=== PATIENT | female | born 1980 | race Caucasian/White ===

== ENCOUNTER → 2019-01-05 09:08 | Outpatient (CLI) | payer OTHER, SELFPAY ==
[2019-01-05 12:19] LABS: Absolute Lymphocyte Count 2.04 X10^3/ul (0.83-4.51); Absolute Neutrophil Count 3.3 X10^3/uL (2.0-7.7); Basophil# 0.05 X10^3/uL; Basophil% 0.8 % (0-1); Eosinophil# 0.44 X10^3/uL; Eosinophils% 6.9 % (0-5); Hematocrit 42.8 % (37-47); Hemoglobin 13.8 g/dl (12.0-15.0); Lymphocyte # 2.04 X10^3/ul (4.0); Mean Corp Hgb Conc 32.2 g/gl (32-36); Mean Corpuscular Hgb 27.5 pg (27.0-32.0); Mean Corpuscular Volume 85.3 fL (81-99); Mean Platelet Vol. 10.4 fl (6.2-12.0); Monocyte# 0.55 X10^3/uL; Monocyte% 8.6 % (0-10); Neutrophil # 3.28 X10^3/uL (2.7-7.7); Neutrophil % 51.5 % (47-70); Platelet Count 288 K/mm3 (150-450); RBC Distribution Width CV 14.3 % (11.6-14.6); RBC Distribution Width SD 44.3 fl (35.1-43.9); Red Blood Count 5.02 M/mm3 (4.2-5.4); White Blood Count 6.4 K/mm3 (4.4-11.0)
[2019-01-05 12:22] LABS: POSITIVE COUNT NO; POSITIVE DIFFERENTIAL NO; POSITIVE MORPHOLOGY NO
[2019-01-05 12:25] LABS: AST(SGOT) 17 U/L (15-37); Alanine Aminotransfer ALT/SGPT 35 U/L (13-56); Albumin, Serum 3.8 g/dL (3.2-5.0); Alkaline Phosphatase 64 U/L (45-117); Anion Gap 8 (5-15); BUN 12 mg/dL (7-18); BUN/Creat Ratio 14.8 RATIO (10-20); Calcium,Total 8.7 mg/dL (8.5-10.1); Chloride 108 mmol/L (98-107); Cholesterol 227 mg/dL (200); Creatinine, Serum 0.81 mg/dL (0.55-1.02); EST Glomerular Filtration Rate 84 mL/min (>60); Est Glom Filt Rate - Afr Amer 101 mL/min (>60); Globulin 3.7 g/dL (2.2-4.2); Glucose 84 mg/dL (74-106); High Density Lipoprotein 43 mg/dL; Potassium 4.1 mmol/L (3.5-5.1); Protein, Total 7.5 g/dL (6.4-8.2); Sodium Level 141 mmol/L (136-145); Triglycerides 166 mg/dL; Very Low Density Lipoprotein 33 mg/dL (5-40)
[2019-01-07 22:36] LABS: Hep B Surface Antibodies Non Reactive (.)
== END ==
PROVIDERS: Family Provider Family Medicine; PCP Family Medicine; Visit Provider Family Medicine
DX: Z20.9 Contact with and (suspected) exposure to unspecified communicable disease (principal); E78.00 Pure hypercholesterolemia, unspecified; Z51.81 Encounter for therapeutic drug level monitoring
CPT/HCPCS: 36415; 80053; 80061; 85025; 86706

== ENCOUNTER 2019-06-21 10:21 | Day surgery (SDC) | payer OTHER, SELFPAY ==
[2019-06-21 09:56] VITALS: BMI 50.4
[2019-06-21 10:46] VITALS: BP 105/57; PULSE 57; RESP 17; TEMP 36.7; O2SAT 98; BMI 50.3
--- NOTE | 2019-06-21 11:20 | PCM.HP.BLA ---
History and Physical Date of Admission: 06/21/19 [facility] [address] [place] [address] OFFICE VISIT Date of Service: 06/21/19 MR#: [id number] Acct: [id number] Name: YANN FONTANA Rep #: [id number] : 1980 Provider: Tamir Granados MD Age/Sex: 39/F Location: [facility] Status: Signed Intake Vital Signs 06/21/19 Height 5 ft 4 in 06/21/19 Weight: 294 lb 06/21/19 Body Mass Index (BMI) 50.4 06/21/19 Blood Pressure 105/69 06/21/19 Blood Pressure Location Rt brachial 06/21/19 Respiratory Rate 18 06/21/19 Pulse Rate 54 L 06/21/19 Pulse Source Monitor 06/21/19 Temperature 98.2 F 06/21/19 Pulse Ox 98 06/21/19 Oxygen Delivery Method room air Intake Visit Reasons: Rt Breast Birads 4 [facility] 06/10 [employer] M[employer] Required: No Is patient in pain?: No Allergies Penicillins Allergy (Verified 06/21/19 07:53) Unknown Medications Citalopram Hydrobromide [Citalopram HBr] 40 mg PO QHS 06/20/19 [History Confirmed 06/21/19] Cyclosporine [Restasis] 1 ea OP BID 06/20/19 [History Confirmed 06/21/19] Levonorgestrel-Ethin Estradiol [Aviane-28 Tablet] 1 ea PO DAILY 06/20/19 [History Confirmed 06/21/19] Loratadine 10 mg PO QHS 06/20/19 [History Confirmed 06/21/19] Metoprolol Tartrate [Lopressor (Beta Bharat)] 50 mg PO QHS 06/20/19 [History Confirmed 06/21/19] Multivitamin [Multiple Vitamins] 1 ea PO DAILY 06/20/19 [History Confirmed 06/21/19] [place]-3 Fatty Acids/Fish Oil [Fish Oil 1,000 mg Capsule] 1 ea PO DAILY 06/20/19 [History Confirmed 06/21/19] Risperidone [Risperdal] 0.5 mg PO QHS 06/20/19 [History Confirmed 06/21/19] Rizatriptan Benzoate [Maxalt] 10 mg PO .X1 PRN 06/20/19 [History Confirmed 06/21/19] Topiramate [Topiramate ER] 150 mg PO QHS 06/20/19 [History Confirmed 06/21/19] PFSH Medical History Depression (Acute) Elevated LDL cholesterol level (Acute) IBS (irritable bowel syndrome) (Acute) Intellectual disability (Acute) Long QT syndrome (Acute) Migraine headache (Acute) Chronic diarrhea (Chronic) Surgical History History of carpal tunnel surgery of right wrist (Acute) History of excision of pilonidal cyst (Acute) History of foot surgery (Acute) history lasik eye surgery (Acute) history removal wisdom teeth (Acute) Family History Mother Colon cancer Father Cancer prostate Social History (Updated 06/21/19 @ 10:18 by Tamir Granados MD) Smoking Status: Never smoker alcohol intake: never substance use type: does not use HPI HPI HPI: YANN FONTANA, is a 39 F who presents to the office today for HPI HPI Surgical H&P: Yes HPI: YANN FONTANA, is a 39 F who presents to the office today for evaluation of an abnormal mammogram. She had her mammograms and ultrasound done in [facility] she was noted to have an area in the right side of her breast at the 9 o'clock position showing a cyst 1 cm solid lesion with intermittent suspicion and a biopsy was recommended. She has not felt anything herself. ROS General General: Yes fatigue; no weight change, appetite, colon cancer, breast cancer or weakness HEENT HEENT: Yes eye surgery; no difficulty swallowing, eye injury, swollen glands or hoarseness Endo Endocrine: No thyroid disease, diabetes mellitus, thyroid cancer, Hair loss, heat intolerance or cold intolerance Skin Skin: Yes rash; no changing moles Breast Breast: Yes abnormal mammogram and abnormal US; no left breast lump, right breast lump, nipple discharge, breast pain or breast enlargement Musc Musculoskeletal: No back problems, arthritis, rheumatoid arthritis, gout or joint pain Cardio Cardiovascular: No murmur, pacemaker, heart disease, atrial fibrillation, high blood pressure, heart attack, heart stent, palpitations, shortness of breat with exertion or chest pain Additional Details: Long QT Syndrome Psych Psychiatric: Yes depression and anxiety; no hearing voices Resp Respiratory: Yes shortness of breath, No sleep apnea, No cough, No COPD, No asthma, No emphysema, No wheezing Gastro Gastrointestinal: No abdominal pain, No nausea or vomiting, Yes diarrhea, Yes constipation, No blood in stool, No acid reflux, No hemorrhoids, No ulcers, No gallbladder problem, No black,tarry stools Additional Details: nausea with Migraines Angel Hematologic: No blood thinners, No blood disorders, No bleeding, No anemia, No blood clots Neuro Neurologic: No system reviewed and no additional complaints, except as docu, No as per HPI, No abnormal walking, No abnormal hearing, No abnormal movements, No abnormal speech, No behavioral changes, No burning sensations, No confusion, No seizure-like activity, No unsteadiness, No dizziness, No localized weakness, No frequent falls, No headache(s), No lack of coordination, No loss of vision, No memory loss, Yes numbness, No other visual disturbances, No radiating pain, No restless legs, No sensory deficit, No fainting, Yes tingling, No tremor(s), No weakness, No other Exam Const General: no acute distress, well developed, well hydrated Orientation: oriented to person, oriented to place, oriented to time [facility] Head: normal to inspection, normocephalic, atraumatic Ears: external ears normal Mouth: oropharynx normal, moist mucous membranes Eyes General: appearance normal, both eyes and all related structures Sclera: sclerae normal Pupils: normal by confrontation Neck Neck: trachea midline, no lymphadenopathy noted Neck mass: No Thyroid: thyroid normal Lymphatic: no lymphadenopathy noted Chest Chest palpation & inspection: normal inspection of the chest Breast inspection: normal inspection of the breasts Breast Palpation: No nipple discharge Other: Palpation of the right breast reveals no palpable lesions are identified. Palpation of the left breast reveals no palpable lesions are identified. Axillary exam demonstrates no suspicious masses in either the left or right axilla. Resp Effort & Inspection: normal respiratory effort Auscultation: clear to auscultation bilaterally Percussion: percussion normal Other: Respiratory Exam: Deferred Cardio Rate: regular rate Rhythm: regular rhythm Heart Sounds: no murmurs Other: Cardiac Exam: Deferred GI Palpation: soft, no hepatosplenomegaly, no masses, nontender Rectal Exam: other Other: GI Exam: Deferred Other: Rectal Exam: Deferred Extrem General: normal to inspection, no clubbing, cyanosis or edema Other: Extremity Exam: Deferred Assessment & Plan Problems 1. Abnormal mammogram of right breast R92.8 Plan I have discussed above with the patient. I have recommended ultrasound guided needle core breast biopsy with vacuum assistance. I have described the procedure to the patient. I have discussed with the patient that sometimes the ultrasound lesion may be artifact and is user dependent and therefore prior to undergoing the procedure, the patient will have a definitive US to ensure that the lesion is truly present and is not artifact. A marker clip will be placed to identify the location. Patient has been counseled to the risks/benefits of the procedure. I have explained the risks of the surgery, including but not limited to: infection, bleeding, injury to any blood vessels/nerves, scar tissue, missing the lesion, further surgery, etc. - the patient understands and agrees to proceed. I have answered all of the patient's questions to her satisfaction and she has no further questions. Coding Level of Care Code Off vis,new,level 3 Diagnoses Abnormal mammogram of right breast R92.8 06/21/19 1018 <Electronically signed by Tamir Granados MD> Date Tamir Granados MD Cosigner Signature: Date (if applicable) CC: Deepti Cooper DO ~ I have re-examined the patient. There are no clinical changes since date of exam.
--- NOTE | 2019-06-21 12:30 | BRBX_PTH ---
PATIENT: YANN FONTANA LOC: [facility] [place] U#:[id number] AGE/SX: 39/F ROOM: RE06/21/[address]: Dr. Tamir Granados MD : 1980 BED: DIS: 06/21/2019 SPEC #: [id number] RECD: 06/22/19 08:17 STATUS: BARTOLO REReta #: [id number] DARLENE: 06/21/19 12:[address]: Tamir Granados DEPT: SURGICAL PATHOLOGY RECD BY: Kan Kong ENTERED: 06/22/19 10:56 SP TYPE: BREAST BX OTHR DR: Dr. Deepti Cooper, DO Tissues: Breast, NOS Procedures: Surgery Specimen Level IV HEADER OPERATION: Breast, ultrasound-guided core biopsy PRE-OP DIAGNOSIS: Abnormal mammogram of right breast TISSUE SUBMITTED: Breast tissue MICROSCOPIC DIAGNOSIS Breast tissue, ultrasound-guided core biopsy: Fibroadenoma. Negative for atypia or malignancy. SJ:adam 06/23/19 COMMENT Correlation with clinical, radiologic findings and appropriate follow up are necessary. Case has been reviewed in consultation with Dr. Heck who concurs with the above diagnosis. IDC:AM MICROSCOPIC DESCRIPTION Slides are reviewed. GROSS DESCRIPTION Received in fixative is one container labeled with the patient's name and designated breast tissue. The specimen consists of multiple elongated fragments of alonso-yellow fibroadipose tissue that in aggregate measure 1 x 0.5 x 0.1 cm. The entire specimen is submitted in one cassette. / NAKIA:adam 06/22/19 TC:1 CPT: 02141
[2019-06-21] MEDS: Bupivacaine Mpf 0.5% 30 ML VIAL (13:15)
--- NOTE | 2019-06-21 13:27 | PCM.OPRPT ---
Problem List (1) Abnormal mammogram of right breast Status: Acute Report of Operation Date of Procedure: 06/21/19 Pre-Operative Diagnosis: Abnormal mammogram to right breast Post-Operative Diagnosis: Same Surgery/Procedure Performed:: Ultrasound-guided needle core biopsy of abnormal mammogram the right breast Type of Anesthesia:: General Anesthesiologist: Josef Redman Specimen's removed: Needle core biopsy right breast Estimated Blood Loss (mL): < 5 cc Fluids Replaced: 800 cc LR Description of Procedure: Patient was brought into the operating room. Placed in the supine position. Under excellent general anesthetic ultrasound of the right breast at the 9 o'clock position revealed the lesion in question. I prepped the skin with alcohol. I injected 1% lidocaine plain. A skin mal was made. Under ultrasound guidance 3 needle core biopsies were obtained of this lesion. Under ultrasound guidance a small titanium clip was placed in the biopsy cavity. Steri-Strips were applied sterile dressings were applied and the patient tolerated the procedure well. - Admit VTE Documentation VTE Present on Admission: No VTE Mechan Device Prophylaxis: SCD's VTE Pharm Prophylaxis ordered?: No Reason prophylaxis not ordered:: Treatment Not Indicated
--- NOTE | 2019-06-21 13:30 | PCM.DCBBX ---
Discharge Diet: No Restrictions Discharge Activity: Return to Normal Activity May shower in (days): 3 Remove Dressing in (days):: 3 - Leave Dermabond in place. Allergies/Adverse Reactions: Allergies Penicillins Allergy (Verified 06/21/19 10:42) Unknown Medications to take at Discharge Citalopram Hydrobromide [Citalopram HBr] 40 mg PO QHS 06/20/19 Cyclosporine [Restasis] 1 ea OP BID 06/20/19 Levonorgestrel-Ethin Estradiol [Aviane-28 Tablet] 1 ea PO DAILY 06/20/19 Loratadine 10 mg PO QHS 06/20/19 Metoprolol Tartrate [Lopressor (Beta Bharat)] 50 mg PO QHS 06/20/19 Multivitamin [Multiple Vitamins] 1 ea PO DAILY 06/20/19 [place]-3 Fatty Acids/Fish Oil [Fish Oil 1,000 mg Capsule] 1 ea PO DAILY 06/20/19 Risperidone [Risperdal] 0.5 mg PO QHS 06/20/19 Rizatriptan Benzoate [Maxalt] 10 mg PO .X1 PRN 06/20/19 Topiramate [Topiramate ER] 150 mg PO QHS 06/20/19 Orders to be completed after discharge: ,Urine Time Frame: 06/21/19, Facility: [facility], Location: Laboratory Primary Care Physician: Deepti Cooper DO [Primary Care Provider] - Test Results: Test results from this visit will be discussed in further detail at your follow-up appointment, if applicable. Please Follow Up With: Tamir Granados MD - [phone] When: Please call for an appointment to be seen in one week.
[2019-06-21 13:37] VITALS: BP 105/57; BP 125/74; PULSE 57; RESP 16; TEMP 36.4; O2SAT 99
[2019-06-21 13:45] VITALS: BP 105/57; BP 128/88; PULSE 63; RESP 16; O2SAT 99
[2019-06-21 14:00] VITALS: BP 105/57; BP 110/82; PULSE 63; RESP 16; O2SAT 99
[2019-06-21 14:12] VITALS: BP 105/57; BP 124/78; PULSE 57; RESP 16; TEMP 36.1; O2SAT 99
[2019-06-21 14:43] VITALS: BP 105/57
== END 2019-06-21 14:49 | disposition home or self-care (01) ==
LOC: SDC 10:26 → AC 10:27
PROVIDERS: Family Provider Family Medicine; PCP Family Medicine; Referring Provider Surgery; Visit Provider Surgery
PROC: (CPT 19083; principal; 2019-06-21 12:15)
DX: D24.1 Benign neoplasm of right breast (principal); I45.81 Long QT syndrome; E78.00 Pure hypercholesterolemia, unspecified; F32.9 Major depressive disorder, single episode, unspecified; F41.9 Anxiety disorder, unspecified; F79 Unspecified intellectual disabilities; G43.909 Migraine, unspecified, not intractable, without status migrainosus; Z79.899 Other long term (current) drug therapy
CPT/HCPCS: 00400; 19083; 88305; J7120